=== PATIENT | female | born 1995 | race African-American/Black ===

== ENCOUNTER 2020-03-28 14:30 | Emergency (ER) | payer MEDICARE, MEDICAID ==
[~2020-03-28] VITALS: Ht 160 cm; Wt 72.6 kg
[2020-03-28 14:33] VITALS: BP 140/77
[2020-03-28 15:04] LABS: BASOPHILS % (AUTO) 1.7 % (0.0-2.0); EOSINOPHILS % (AUTO) 2.2 % (0.0-3.0); HEMATOCRIT 33.9 % (37.0-47.0); HEMOGLOBIN 10.6 G/DL (12.0-16.0); LYMPHOCYTES % (AUTO) 31.5 % (20.0-45.0); MEAN CORPUSCULAR VOLUME 82 FL (80-99); MONOCYTES % (AUTO) 11.5 % (1.0-10.0); NEUTROPHILS % (AUTO) 53.2 % (45.0-75.0); PLATELET COUNT 275 K/UL (150-450); RED BLOOD COUNT 4.13 M/UL (4.20-5.40); RED CELL DISTRIBUTION WIDTH 14.2 % (11.6-14.8); WHITE BLOOD COUNT 3.9 K/UL (4.8-10.8)
[2020-03-28 15:23] LABS: ANION GAP 11 mmol/L (5-15); BLOOD UREA NITROGEN 12 mg/dL (7-18); CALCIUM 8.8 MG/DL (8.5-10.1); CARBON DIOXIDE 26 MMOL/L (21-32); CHLORIDE 104 MMOL/L (98-107); CREATININE 0.8 MG/DL (0.55-1.30); POTASSIUM 3.5 MMOL/L (3.5-5.1); SODIUM 141 MMOL/L (136-145)
[2020-03-28 15:27] LABS: ALANINE AMINOTRANSFERASE 15 U/L (12-78); ALBUMIN 3.5 G/DL (3.4-5.0); ALBUMIN/GLOBULIN RATIO 0.9 (1.0-2.7); ALKALINE PHOSPHATASE 78 U/L (46-116); ASPARTATE AMINO TRANSFERASE 15 U/L (15-37); BILIRUBIN,TOTAL 0.2 MG/DL (0.2-1.0)
[2020-03-28 15:49] LABS: APPEARANCE,URINE VERY CLOUDY; BILIRUBIN, URINE NEGATIVE (NEGATIVE); GLUCOSE, URINE (UA) NEGATIVE (NEGATIVE); KETONES,URINE 1+ (NEGATIVE); LEUKOCYTE ESTERASE ,URINE 3+ (NEGATIVE); NITRITE,URINE POSITIVE (NEGATIVE); PH,URINE 8 (4.5-8.0); PROTEIN,URINE 3+ (NEGATIVE); UROBILINOGEN,URINE NORMAL MG/DL (0.0-1.0)
[2020-03-28 15:52] LABS: COLOR,URINE YELLOW
--- NOTE | 2020-03-28 16:11 | Emergency Room Report ---
History of Present Illness General Chief Complaint: Substance Abuse Source: Patient Present Illness HPI 24-year-old female with no symptom past medical history brought in by paramedics due to taking edible marijuana at work earlier today. Patient is tachycardic upon arrival. Denies any suicidal homicidal ideation. Denies chest pain, shortness of breath, headache and dizziness. Reports that she took just brownie her coworker offered her work has edible marijuana in it. Denies all other drug use, tobacco smoke alcohol intake. Denies . Allergies: Coded Allergies: No Known Allergies (Unverified , 03/28/20) COVID-19 Screening Contact w/high risk pt: No Recent Travel to affected area: No Experienced COVID-19 symptoms?: No COVID-19 Testing performed [employer] TECHNICIAN: No Patient History Past Medical History: see triage record Past Surgical History: none Pertinent Family History: none Social History: Reports: drug use - marijuana Last Menstrual Period: na Now: No Immunizations: UTD Reviewed Nursing Documentation: PMH: Agreed; PSxH: Agreed Nursing Documentation-PMH Past Medical History: No Stated History Review of Systems All Other Systems: negative except mentioned in HPI Physical Exam Vital Signs Date Time Temp Pulse Resp B/P (MAP) Pulse Ox O2 Delivery O2 Flow Rate FiO2 03/28/20 14:27 98.6 120 20 140/77 (98) 99 Room Air Sp02 EP Interpretation: reviewed, abnormal - Tachycardic General Appearance: no apparent distress, alert, GCS 15, non-toxic Head: normocephalic, atraumatic Eyes: bilateral eye normal inspection, bilateral eye PERRL ENT: hearing grossly normal, normal pharynx, no angioedema, normal voice Neck: full range of motion, supple/symm/no masses Respiratory: chest non-tender, lungs clear, normal breath sounds, speaking full sentences Cardiovascular #1: regular rate, rhythm, no edema Gastrointestinal: normal bowel sounds, non tender, soft, non-distended, no guarding, no rebound Rectal: deferred Genitourinary: no CVA tenderness Musculoskeletal: back normal Neurologic: alert, motor strength/tone normal, oriented x3, sensory intact, responsive, speech normal Psychiatric: judgement/insight normal, memory normal, mood/affect normal, no suicidal/homicidal ideation Skin: no rash Lymphatic: no adenopathy Medical Decision Making PA Attestation Diagnosis and treatment plans were reviewed and discussed with my supervising physician Dr. Burns Diagnostic Impression: Primary Impression: Marijuana abuse ER Course 24-year-old female with no symptom past medical history brought in by paramedics due to taking edible marijuana at work earlier today. Patient is tachycardic upon arrival. Denies any suicidal homicidal ideation. Denies chest pain, shortness of breath, headache and dizziness. Reports that she took just brownie her coworker offered her work has edible marijuana in it. Denies all other drug use, tobacco smoke alcohol intake. Denies . Ddx considered but are not limited to: Amphetamine abuse, methamphetamine abuse , marijuana use, cocaine abuse Vital signs: are WNL, pt. is afebrile H&PE are most consistent with: Marijuana abuse ORDERS: Psychiatric order set, Zofran ED INTERVENTIONS: NS bolus, Zofran DISCHARGE: At this time pt. is stable for d/c to home. Will provide printed patient care instructions, and any necessary prescriptions. Care plan and follow up instructions have been discussed with the patient prior to discharge. Follow-up primary doctor, avoid using marijuana, if worsening symptoms return to the emergency room Last Vital Signs Date Time Temp Pulse Resp B/P (MAP) Pulse Ox O2 Delivery O2 Flow Rate FiO2 03/28/20 14:33 120 20 Room Air 03/28/20 14:33 98.6 140/77 99 Disposition: HOME, SELF-CARE Condition: Stable Scripts Ondansetron (Zofran) 4 Mg Tablet 4 MG ORAL Q6H PRN for Nausea & Vomiting, #10 TAB Prov: Gary Devries 03/28/20 Referrals: NON PHYSICIAN (PCP) Patient Instructions: Substance Use Disorder, Cannabis Use Disorder Additional Instructions: Increase oral hydration, avoid using marijuana, follow-up with primary doctor, if worsening symptoms return to the emergency room Gary Devries March 28, 2020 16:11
[2020-03-28] MEDS ORDERED: ZOFRAN4 M1 ORAL (16:12)
[2020-03-28 16:13] VITALS: BP 132/77
== END 2020-03-28 16:14 | disposition home or self-care (01) ==
LOC: EDBD 14:30 → EMR 15:07
DX: F12.10 Cannabis abuse, uncomplicated (principal)
CPT/HCPCS: 36415; 80053; 80307; 81003; 81025; 85025; 87086; 96361; 96374; 96375; 99284; G0480; J2405; J7030; S0028